=== PATIENT | female | born 1975 | race Caucasian/White ===

== ENCOUNTER 2020-10-07 12:04 | Emergency (ER) | payer OTHER ==
[~2020-10-07] VITALS: Ht 162.6 cm; Wt 117.9 kg
[~2020-10-07 12:04] MED LIST: DEXILANT60 MG; ESTRACE1 MG; FIORICET-COD 31 EACH PO; FLUOXETINE HCL40 MG; INDERAL40 MG PO; PREDNISONE50 MG PO; PROMETHAZINE HC25 M2 PO; SAVELLA50 MG
[2020-10-07] MEDS ORDERED: SOMA250 MG PO (12:24)
[2020-10-07] MEDS ORDERED: BUPROPION XL300 MG PO (12:24)
[2020-10-07] MEDS ORDERED: XANAX1 MG PO (12:24)
[2020-10-07] MEDS ORDERED: OMEPRAZOLE 20 M20 M1 PO (12:25)
[2020-10-07] MEDS ORDERED: PROVIGIL 100 M100 MG PO (12:26)
[2020-10-07] MEDS ORDERED: XARELTO1 EACH PO (12:26)
[2020-10-07] MEDS ORDERED: NORCO 5-325 TA1 EAC2 PO (14:58)
[2020-10-07 15:09] VITALS: BP 147/65
== END 2020-10-07 15:10 | disposition home or self-care (01) ==
LOC: M.ERS 12:04
DX: I82.402 Acute embolism and thrombosis of unspecified deep veins of left lower extremity (principal); K21.9 Gastro-esophageal reflux disease without esophagitis; Z79.899 Other long term (current) drug therapy; Z88.1 Allergy status to other antibiotic agents; Z90.710 Acquired absence of both cervix and uterus; Z90.49 Acquired absence of other specified parts of digestive tract; Z86.718 Personal history of other venous thrombosis and embolism